=== PATIENT | female | born 1995 | race African-American/Black ===

== ENCOUNTER 2020-07-26 15:02 | Emergency (ER) | payer MEDICAID ==
[~2020-07-26] VITALS: Ht 167.6 cm; Wt 61.2 kg
[2020-07-26] MEDS ORDERED: LORAZEPAM 2MG/ML CPJ IM ONE (15:45)
[2020-07-26 17:39] VITALS: BP 118/78
== END 2020-07-26 17:40 | disposition home or self-care (01) ==
LOC: ER 15:02
DX: F41.0 Panic disorder [episodic paroxysmal anxiety] (principal); J40 Bronchitis, not specified as acute or chronic
CPT/HCPCS: 96372; 99283; J2060